=== PATIENT | female | born 1945 | race Caucasian/White ===

== ENCOUNTER → 2023-12-31 | Outpatient (CLI) | payer OTHER | END | disposition home or self-care (01) | LOC: RESCLI 14:36 | PROVIDERS: ATTEND Internal Medicine | DX: I10 Essential (primary) hypertension (principal); E55.9 Vitamin D deficiency, unspecified; E78.5 Hyperlipidemia, unspecified; I48.91 Unspecified atrial fibrillation; Q80.9 Congenital ichthyosis, unspecified; E61.2 Magnesium deficiency; Z79.899 Other long term (current) drug therapy; Z88.8 Allergy status to other drugs, medicaments and biological substances; Z98.890 Other specified postprocedural states ==